=== PATIENT | male | born 1945 | race Caucasian/White ===

== ENCOUNTER → 2017-01-03 | Outpatient (CLI) | payer OTHER, MEDICARE | LOC: BMCIMAGING 09:58 | PROVIDERS: ATTEND Internal Medicine | DX: M43.22 Fusion of spine, cervical region (principal); M50.321 Other cervical disc degeneration at C4-C5 level; M50.322 Other cervical disc degeneration at C5-C6 level; M50.323 Other cervical disc degeneration at C6-C7 level; M43.12 Spondylolisthesis, cervical region; M48.02 Spinal stenosis, cervical region; M99.71 Connective tissue and disc stenosis of intervertebral foramina of cervical region | CPT/HCPCS: 72040; 90662; G0008; G0463 ==